=== PATIENT | male | born 1950 | race Caucasian/White ===

== ENCOUNTER 2021-05-29 02:16 | Day surgery (SDC) | payer OTHER, SELFPAY ==
[2021-05-17 14:58] VITALS: BMI 36.5
[2021-05-29 10:22] VITALS: BP 173/88; PULSE 91; RESP 18; TEMP 35.9; O2SAT 97; BMI 37.3
--- NOTE | 2021-05-29 10:31 | WPDANESEPPF ---
Anes - Initial Pre Proc Eval Procedure: Operation Date: 05/29/21 11:30 Proposed Procedures p Colonoscopy - Bayron Minaya MD Date/Time: 05/29/21 10:31 Surgeon: Bayron Minaya MD Pre Op Diagnosis: positive cologuard Patient Data Age: 70 Gender: M Height: 1.73 m Weight: 109 kg Allergies Allergy/AdvReac Type Severity Reaction Status Date / Time codeine Allergy Unknown Nausea/Vomi Verified 05/29/21 10:19 ting Home Medications Medication Instructions Recorded Confirmed Type aspirin 81 mg tablet,delayed 81 mg PO DAILY #30 tablet 09/26/19 05/29/21 Rx release meloxicam 15 mg tablet 15 mg PO DAILY #90 tablet 04/16/21 05/29/21 Rx allopurinol 100 mg PO DAILY 05/17/21 05/29/21 History lisinopril 40 mg PO DAILY 05/17/21 05/29/21 History vitamins A,C,V-havi-hmucwz 2 tablet PO BID 05/17/21 05/29/21 History [PreserVision AREDS] Patient hx anesthesia problems: none Family hx anesthesia problems: none PMFSH Past Medical History Medical History (Updated 05/29/21 @ 10:32 by Latrell West MD) Body mass index (bmi) 36.0-36.9, adult (07/05/19) BPH w/o urinary obs/LUTS Broken toe Chronic gout HTN (hypertension), benign Other hyperlipidemia Tobacco use Type 2 diabetes mellitus without complication, without long-term current use of insulin Surgical History Surgical History History of appendectomy History of hernia repair Family History Family History Father Family history of lung cancer Patient's father is Sibling Patient's brother is in good health Mother Family history of Alzheimer's disease Patient's mother is Social History Social History Smoking packs per day: 2 Smoking cigarettes per day: 40.0 Years smoked: 50 Smoking pack-years: 100.00 Smoking status: Current every day smoker Tobacco type: cigarettes Alcohol intake: current Living arrangements: with family Spiritual care concerns: No Anes - Eval Final PreProcedure Day of Procedure 05/29/21 10:31 Patient weight: obese Heart: regular rate and rhythm Lungs: clear to auscultation and normal air movement Airway: Mallampati scale class II Neurological: alert and oriented Last oral intake: >/= 8 hours ASA classification: III Emergent: no Anesthetic plan: proceed Anesthesia type and monitoring: general GIVS Informed Consent: The patient's anesthetic plan and its attendant risks and benefits were discussed with the patient/family/POA. Questions were solicited and answers provided to the satisfaction of the patient/family/POA.
[2021-05-29] MEDS: LACTATED RINGERS 1,000 ML 150 ML IV CONT (10:32)
--- NOTE | 2021-05-29 12:09 | PM.HPGS ---
History of Present Illness History of Present Illness Consent: Risks, benefits, and alternatives have been discussed and questions answered. Patient agrees to proceed with procedure. Chief complaint: positive cologuard Narrative: Ken Limon is a 70 year old male here for first colonoscopy, had positive cologuard Review of Systems Constitutional: Constitutional: Denies headache(s) and Denies weakness Eyes: Eyes: Denies blurry vision ENT: Reports Normal hearing present, Denies headache(s) and Denies neck pain Cardiovascular: Cardiovascular: Denies chest pain and Denies dyspnea Respiratory: Respiratory: Denies dyspnea Gastrointestinal: Gastrointestinal: Reports no additional gastrointestinal complaints Genitourinary: Genitourinary: Denies dysuria Musculoskeletal: Musculoskeletal: Denies neck pain Integumentary/Breasts: Skin/Breast: Denies dry skin Neurologic: Reports Normal hearing present, Denies headache(s) and Denies weakness Psychiatric: Psychiatric: Denies anxiety Endocrine: Endocrine: Denies change in body appearance Hematologic/Lymphatic: Hematologic/Lymphatic: Denies easy bleeding Allergic/Immunologic: Allergic/Immunologic: Denies urticaria PMFSH Past Medical History Medical History (Updated 05/29/21 @ 10:32 by Latrell West MD) Body mass index (bmi) 36.0-36.9, adult (07/05/19) BPH w/o urinary obs/LUTS Broken toe Chronic gout HTN (hypertension), benign Other hyperlipidemia Tobacco use Type 2 diabetes mellitus without complication, without long-term current use of insulin Surgical History Surgical History History of appendectomy History of hernia repair Family History Family History Father Family history of lung cancer Patient's father is Sibling Patient's brother is in good health Mother Family history of Alzheimer's disease Patient's mother is Social History Social History Smoking packs per day: 2 Smoking cigarettes per day: 40.0 Years smoked: 50 Smoking pack-years: 100.00 Smoking status: Current every day smoker Tobacco type: cigarettes Alcohol intake: current Living arrangements: with family Spiritual care concerns: No Meds Home Medications and Allergies Home Medications Medication Instructions Recorded Confirmed Type aspirin 81 mg tablet,delayed 81 mg PO DAILY #30 tablet 09/26/19 05/29/21 Rx release meloxicam 15 mg tablet 15 mg PO DAILY #90 tablet 04/16/21 05/29/21 Rx allopurinol 100 mg PO DAILY 05/17/21 05/29/21 History lisinopril 40 mg PO DAILY 05/17/21 05/29/21 History vitamins A,C,M-mqeh-jxsiyy 2 tablet PO BID 05/17/21 05/29/21 History [PreserVision AREDS] Allergies Allergy/AdvReac Type Severity Reaction Status Date / Time codeine Allergy Unknown Nausea/Vomi Verified 05/29/21 10:19 ting Vital Signs Vital Signs - 24 hr 05/29/21 10:22 Temperature 96.6 F L Pulse Rate 91 Respiratory Rate 18 Blood Pressure 173/88 H Pulse Oximetry 97 Exam Const: General: comfortable and no acute distress HENMT: General nose exam: Normal nares present Eyes: General: appearance normal, both eyes and all related structures Neck: Neck: no JVD Resp: Auscultation: clear to auscultation bilaterally Cardio: Rate: regular rate Rhythm: regular rhythm GI: Inspection: non-distended GI Palp: Yes Soft to palpation Skin: General skin exam: normal color Neuro: General: gait normal Speech: normal speech Extrem: General: normal to inspection Psych: Mental Status: mental status grossly normal Assessment and Plan Assessment and plan (1) Positive colorectal cancer screening using Cologuard test: Code(s): R19.5 - Other fecal abnormalities Status: Acute Assessment and Plan: colonoscopy
[2021-05-29 12:43] VITALS: BP 122/60; PULSE 65; RESP 15; O2SAT 91
[2021-05-29 12:53] VITALS: BP 106/64; PULSE 72; RESP 17; O2SAT 95
[2021-05-29 13:03] VITALS: BP 132/80; PULSE 78; RESP 19; O2SAT 96
== END 2021-05-29 13:29 | disposition home or self-care (01) ==
PROVIDERS: PCP Internal Medicine; Visit Provider Internal Medicine Gastroenterology
PROC: 0DJD8ZZ Inspection of Lower Intestinal Tract, Via Natural or Artificial Opening Endoscopic (ICD-10-PCS; CPT 45378; principal; 2021-05-29 11:30)
DX: R19.5 Other fecal abnormalities (principal); D12.2 Benign neoplasm of ascending colon; D12.5 Benign neoplasm of sigmoid colon; K63.5 Polyp of colon; K62.1 Rectal polyp; K64.8 Other hemorrhoids; I10 Essential (primary) hypertension; E78.5 Hyperlipidemia, unspecified; E11.9 Type 2 diabetes mellitus without complications; M1A.9XX0 Chronic gout, unspecified, without tophus (tophi); Z79.82 Long term (current) use of aspirin; F17.210 Nicotine dependence, cigarettes, uncomplicated; E66.9 Obesity, unspecified; Z68.37 Body mass index [BMI] 37.0-37.9, adult
CPT/HCPCS: 45385; 88305; J2704; J7120

== ENCOUNTER 2021-09-20 09:22 | Emergency (ER) | payer OTHER, SELFPAY ==
[2021-09-20 09:29] VITALS: BP 156/86; PULSE 80; RESP 14; TEMP 36.6; O2SAT 98
[2021-09-20 09:33] LABS: Glucose Point of Care 302 mg/dl (65-105)
[2021-09-20 09:43] LABS: Basophils Absolute Auto 0.1 K/mm3 (0.0-0.1); Basophils Percent Auto 0.8 % (0.2-1.2); Eosinophils Absolute Auto 0.2 K/mm3 (0-0.3); Eosinophils Percent Auto 1.9 % (0-4.4); Hematocrit 52.7 % (42.0-52.0); Hemoglobin 19.1 g/dL (14.0-18.0); Immature Granulocyte Absolute 0.04 K/mm3 (0.00-0.031); Immature Granulocyte Percent A 0.4 % (0-0.5); Lymphocytes Absolute Auto 3.36 K/mm3 (0.9-3.2); Lymphocytes Percent Auto 30.5 % (18.3-44.2); Mean Corpuscular HGB Conc 36.2 g/dl (32-36); Mean Corpuscular Volume 93.8 fl (80-100); Mean Platelet Volume 11.2 fl (7.4-10.4); Monocytes Absolute Auto 0.8 K/mm3 (0.1-0.6); Monocytes Percent Auto 7.3 % (2.6-8.5); Neutrophils Absolute Auto 6.5 K/mm3 (1.3-6.7); Neutrophils Percent Auto 59.1 % (45.5-73.1); Platelet Count Result 182 k/mm3 (150-375); Red Blood Count 5.62 M/mm3 (4.6-6.20); Red Cell Distribution Width 12.5 % (11.5-14.5)
[2021-09-20] MEDS: SODIUM CHLORIDE 0.9% IV 1,000 ML 999 ML IV CONT ×2 (10:00→10:01)
[2021-09-20 10:20] LABS: Add Urine Microscopic? YES; Appearance Urine Clear (Clear); Bilirubin Urine Negative (Negative); Blood Urine Negative (Negative); Color Urine Yellow (Yellow); Glucose Urine UA 3+ mg/dL (Negative); Ketones Urine 1+ mg/dL (Negative); Leukocyte Esterase Ur Negative LEU/UL (Negative); Mucus Urine Few /lpf; Nitrate Urine Negative (Negative); Protein Urine 1+ mg/dL (Negative); RBC Urine 0-2 /hpf (0-2); Specific Grav Ur 1.039 (1.001-1.035); Squamous Epithelial Cell Urine Rare /hpf (Few); Urobilinogen Urine Negative mg/dL (<2.0); WBC Urine 0-3 /hpf
[2021-09-20 10:28] LABS: Hemoglobin A1C 11.4 % (<5.7)
[2021-09-20 10:28] LABS: Alanine Aminotransferase 44 U/L (4-50); Albumin Level 4.5 g/dL (3.5-5.1); Alkaline Phosphatase 119 U/L (38-126); Anion Gap 8 mmol/L (8-16); Aspartate Amino Transferase 33 U/L (17-59); Bilirubin,Total 0.9 mg/dL (0.2-1.3); Blood Urea Nitrogen 19 mg/dL (9-20); Calcium 9.1 mg/dL (8.4-10.2); Carbon Dioxide 24 mmol/L (22-30); Chloride 102 mmol/L (98-107); Estimated CRCL calculation 116 ml/min; Estimated Glomerular Filt Rate > 60; Glucose 313 mg/dL (65-110); Magnesium 1.8 mg/dL (1.6-2.3); Phosphorus 2.6 mg/dL (2.5-4.5); Potassium 4.3 mmol/L (3.4-5.0); Sodium 134 mmol/L (137-145)
[2021-09-20 10:35] LABS: Beta-Hydroxybutyrate/Acetoacetate 0.45 mmol/L (0.02-0.27)
[2021-09-20 10:38] VITALS: BP 156/86; PULSE 97; RESP 14; O2SAT 97
--- NOTE | 2021-09-20 10:58 | ED.RECABL ---
HPI - Recheck/Abnormal Lab/Rx General Chief Complaint: Recheck/Abnormal Lab/Rx Stated Complaint: high blood sugar Time Seen by Provider: 09/20/21 09:48 Source: patient History of Present Illness HPI narrative: Patient presents for recheck of blood work. Patient reports he has been checking his blood sugar at home because he has had increased thirst and increased urination. Reports the highest it got was 400 today it was 300 symptoms high blood sugars have been persisted he came to the ER for evaluation. Reports otherwise he feels fine denies any abdominal pain, lightheadedness, dizziness. Denies any fevers, chills or cough congestion. Related Data Home Medications Medication Instructions Recorded Confirmed lisinopril 40 mg PO DAILY 05/17/21 05/29/21 vitamins A,C,A-scpg-njusry 2 tablet PO BID 05/17/21 05/29/21 [PreserVision AREDS] Allergies Allergy/AdvReac Type Severity Reaction Status Date / Time codeine Allergy Unknown Nausea/Vomi Verified 09/20/21 09:24 ting Review of Systems Review of Systems: CONSTITUTIONAL: Denies fever, chills, or sweats. EYES: Denies visual changes, redness, or discharge. ENT: Denies rhinorrhea, congestion, sore throat, or otalgia. CARDIOVASCULAR: Denies chest pain, palpitations, or edema. RESPIRATORY: Denies cough or dyspnea. GASTROINTESTINAL: Denies abdominal pain, nausea, vomiting, or diarrhea. GENITOURINARY: Denies dysuria or hematuria. SKIN: Denies rash or itching. MUSCULOSKELETAL: Denies back pain, joint pain, or myalgia. NEUROLOGIC: Denies headache, numbness, dizziness, or weakness. PSYCHIATRIC: Denies anxiety or depression. All systems reviewed & are unremarkable except as noted in HPI and below PMFSH Past Medical History Medical History Body mass index (bmi) 36.0-36.9, adult (07/05/19) BPH w/o urinary obs/LUTS Broken toe Chronic gout HTN (hypertension), benign Other hyperlipidemia Tobacco use Type 2 diabetes mellitus without complication, without long-term current use of insulin Surgical History Surgical History History of appendectomy History of hernia repair Family History Family History Father Family history of lung cancer Patient's father is Sibling Patient's brother is in good health Mother Family history of Alzheimer's disease Patient's mother is Social History Social History Smoking packs per day: 2 Smoking cigarettes per day: 40.0 Years smoked: 50 Smoking pack-years: 100.00 Smoking status: Current every day smoker Tobacco type: cigarettes Alcohol intake: current Spiritual care concerns: No Exam Narrative: GENERAL: Well-appearing, well-nourished, and in no acute distress. HEAD: Normocephalic, atraumatic. EYES: PERRLA and EOMI. ENT: Nares clear, no rhinorrhea or epistaxis. Mucous membranes moist. NECK: Supple. No masses. No JVD CHEST: Clear to auscultation. No respiratory distress. No wheezes rales or rhonchi HEART: Regular rate and rhythm. No murmur heard. Normal peripheral pulses. ABDOMEN: Soft, nontender, nondistended, normal active bowel sounds. EXTREMITIES: Normal range of motion. No edema. SKIN: Warm, dry, no rash. NEURO: No focal deficits. Alert and oriented x3. PSYCH: Normal mood and affect. Course Reevaluation(s) Reevaluation #1: Patient continues to feel well blood sugar is downtrending. With reassuring lab work-up is appropriate for patient valuation by his primary care. Date: 09/20/21 Time: 11:00 Vital Signs Vital signs: Vital Signs Temperature 36.6 C 09/20/21 09:29 Pulse Rate 80 09/20/21 09:29 Respiratory Rate 14 09/20/21 09:29 Blood Pressure 156/86 H 09/20/21 09:29 Pulse Oximetry 98 09/20/21 09:29 Temperature 36.6 C 09/20/21 09:29
[2021-09-20 11:00] LABS: Glucose Point of Care 235 mg/dl (65-105)
[2021-09-20 11:15] VITALS: BP 160/80; PULSE 88; RESP 19; O2SAT 97
== END 2021-09-20 11:15 | disposition home or self-care (01) ==
PROVIDERS: Emergency Provider Emergency Medicine; PCP Internal Medicine
DX: E11.65 Type 2 diabetes mellitus with hyperglycemia (principal); N40.0 Benign prostatic hyperplasia without lower urinary tract symptoms; M1A.9XX0 Chronic gout, unspecified, without tophus (tophi); I10 Essential (primary) hypertension; E78.5 Hyperlipidemia, unspecified; F17.210 Nicotine dependence, cigarettes, uncomplicated; Z79.01 Long term (current) use of anticoagulants; Z79.84 Long term (current) use of oral hypoglycemic drugs
CPT/HCPCS: 36415; 80053; 81001; 82010; 82948; 83036; 83735; 84100; 85025; 96360; 99283; J7030

== ENCOUNTER 2022-01-02 06:34 | Emergency (ER) | payer OTHER, SELFPAY ==
[2022-01-02] VITALS (8 sets, daily range): BP systolic 115–164; BP diastolic 74–92; PULSE 66–82; RESP 12–20; TEMP 36.4–36.5; O2SAT 93–98
--- NOTE | ~2022-01-02 | US_ITS ---
EXAMINATION: US right upper quadrant DATE: 01/02/2022 07:54 INDICATION: Right upper quadrant abdominal pain. Epigastric abdominal pain. TECHNIQUE: Multiple grayscale and Doppler ultrasound images of the abdomen were obtained. COMPARISON: CT abdomen and pelvis 06/27/2019 FINDINGS: The pancreas is not well visualized. There is diffuse hepatic steatosis. The gallbladder is normal in size. No gallstones or gallbladder wall thickening. There is comet tail artifact of the ga llbladder wall, consistent with adenomyomatosis. There was no sonographic Lewis sign. The common tea t is normal and measures 6 mm. IMPRESSION: 1. Diffuse hepatic steatosis. Reviewed, dictated and finalized at location A. [facility]
--- NOTE | 2022-01-02 06:43 | ECG_ITS ---
Measurements Intervals [place] Rate: 84 P: 18 MN: 144 QRS: -15 QRSD: 102 T: 40 QT: 359 QTc: 425 Interpretive Statements SINUS RHYTHM NORMAL ECG NO PREVIOUS ECG AVAILABLE FOR COMPARISON Electronically Signed On 01-02-2022 14:07:29 [employer] by Yung Sow M.D.
[2022-01-02 06:58] LABS: Basophils Absolute Auto 0.1 K/mm3 (0.0-0.1); Eosinophils Absolute Auto 0.2 K/mm3 (0-0.3); Eosinophils Percent Auto 3.1 % (0-4.4); Hematocrit 59.2 % (42.0-52.0); Hemoglobin 19.7 g/dL (14.0-18.0); Immature Granulocyte Absolute 0.02 K/mm3 (0.00-0.031); Immature Granulocyte Percent A 0.3 % (0-0.5); Immature Platelet Fraction Pct 6.5 % (0.9-11.2); Lymphocytes Absolute Auto 3.26 K/mm3 (0.9-3.2); Lymphocytes Percent Auto 42.4 % (18.3-44.2); Mean Corpuscular HGB Conc 33.3 g/dl (32-36); Mean Corpuscular Hemoglobin 32.3 pg (26-34); Monocytes Absolute Auto 0.9 K/mm3 (0.1-0.6); Monocytes Percent Auto 11.7 % (2.6-8.5); Neutrophils Absolute Auto 3.2 K/mm3 (1.3-6.7); Neutrophils Percent Auto 41.5 % (45.5-73.1); Platelet Count Result 132 k/mm3 (150-375); Red Cell Distribution Width 14.1 % (11.5-14.5); White Blood Count 7.7 K/mm3 (4.5-10.0)
[2022-01-02 07:03] LABS: Alanine Aminotransferase 36 U/L (4-50); Albumin Level 4.3 g/dL (3.5-5.1); Alkaline Phosphatase 89 U/L (38-126); Anion Gap 7 mmol/L (8-16); Aspartate Amino Transferase 36 U/L (17-59); Bilirubin,Total 0.5 mg/dL (0.2-1.3); Blood Urea Nitrogen 19 mg/dL (9-20); Calcium 8.8 mg/dL (8.4-10.2); Carbon Dioxide 30 mmol/L (22-30); Chloride 104 mmol/L (98-107); Estimated CRCL calculation 88 ml/min; Estimated Glomerular Filt Rate > 60; Glucose 137 mg/dL (65-110); Lipase 138 U/L (23-300); Potassium 4.4 mmol/L (3.4-5.0); Sodium 141 mmol/L (137-145)
[2022-01-02 07:16] LABS: Atypical Lymphocytes Present; Platelet Estimate Decreased (Adequate)
--- NOTE | 2022-01-02 07:18 | ED.ABDPAIN ---
HPI - Abdominal Pain General Chief Complaint: Abdominal Pain Stated Complaint: stomach's on fire Time Seen by Provider: 01/02/22 07:02 History of Present Illness HPI narrative: Patient is a 71-year-old male who presents ER with burning epigastric pain. Ongoing over the last 3 days. This occurred just after he had some body aches with a fever of 101.0 ?F. No longer febrile. Denies runny nose or sore throat or productive cough. No urinary frequency urgency or dysuria. Had similar pain years ago was told it was related to an infection of his stomach. Patient has tried no medication to help with his discomfort. It is worsened by eating. No radiation to his back or shoulder. Denies chest pain/pressure. Related Data Home Medications Medication Instructions Recorded Confirmed vitamins A,C,H-oluo-ifdiwr 2 tablet PO BID 05/17/21 09/26/21 [PreserVision AREDS] Allergies Allergy/AdvReac Type Severity Reaction Status Date / Time codeine Allergy Unknown Nausea/Vomi Verified 09/26/21 09:35 ting Review of Systems Review of Systems: All systems reviewed & are unremarkable except as noted in HPI and below Constitutional: Constitutional: Denies chills, Reports fever(s) and Denies weakness ENT: Denies nasal congestion and Denies sore throat Cardiovascular: Cardiovascular: Denies chest pain, Denies rapid heart rate and Denies radiating jaw, neck or arm pain Respiratory: Respiratory: Denies cough and Denies dyspnea Gastrointestinal: Gastrointestinal: Reports abdominal pain, Denies constipation, Denies diarrhea, Denies nausea and Denies vomiting Genitourinary: Genitourinary: Denies dysuria and Denies urinary frequency [facility] Past Medical History Medical History Body mass index (bmi) 36.0-36.9, adult (07/05/19) BPH w/o urinary obs/LUTS Broken toe Chronic gout HTN (hypertension), benign Other hyperlipidemia Tobacco use Type 2 diabetes mellitus without complication, without long-term current use of insulin Surgical History Surgical History History of appendectomy History of hernia repair Family History Family History Father Family history of lung cancer Patient's father is Sibling Patient's brother is in good health Mother Family history of Alzheimer's disease Patient's mother is Social History Social History (Updated 09/26/21 @ 09:36 by Johnna Polo) Smoking packs per day: 2 Smoking cigarettes per day: 40.0 Years smoked: 50 Smoking pack-years: 100.00 Smoking status: Current every day smoker Tobacco type: cigarettes Alcohol intake: current Alcohol use details: social Substance use: never Substance use type: does not use Spiritual care concerns: No Exam Narrative: GENERAL: Well-appearing, well-nourished, and in no acute distress. HEAD: Normocephalic, atraumatic. EYES: PERRL and EOMI. CHEST: Clear to auscultation. No respiratory distress. HEART: Regular rate and rhythm. Normal peripheral pulses. ABDOMEN: Soft, mild tenderness epigastrium right upper quadrant without guarding, nondistended. EXTREMITIES: Normal range of motion. No edema. SKIN: Warm, dry, no rash. NEURO: Alert and oriented x3. PSYCH: Normal mood and affect. Course Course Emergency Course: Only mild improvement with morphine and resolution of discomfort with GI cocktail. Informed results. Discussed treatment plan. Discharge home. Vital Signs Vital signs: Vital Signs Temperature 97.7 F 01/02/22 06:39 Pulse Rate 82 01/02/22 06:39 Respiratory Rate 20 01/02/22 06:39 Blood Pressure 164/92 H 01/02/22 06:39 Pulse Oximetry 98 01/02/22 06:39 Temperature 97.7 F 01/02/22 06:39 Pulse Rate 70 01/02/22 09:14 Respiratory Rate 12 01/02/22 09:14 Blood Pressure 122/78 01/02/22 09:14
[2022-01-02] MEDS: MORPHINE SULFATE (*CRX) 4 MG/ML INJ IV PUSH (07:31)
[2022-01-02] MEDS: BELLADONNA ALK/PHENOB ELIX 10 ML, MAG HYDROX/ALUMINUM HYD/SIMETH 30 ML, LIDOCAINE HCL 2... PO (08:16)
== END 2022-01-02 09:46 | disposition home or self-care (01) ==
PROVIDERS: General Practice; Emergency Provider Emergency Medicine; PCP Internal Medicine
DX: K21.9 Gastro-esophageal reflux disease without esophagitis (principal); N40.0 Benign prostatic hyperplasia without lower urinary tract symptoms; I10 Essential (primary) hypertension; E11.9 Type 2 diabetes mellitus without complications; E78.49 Other hyperlipidemia; M10.9 Gout, unspecified; F17.210 Nicotine dependence, cigarettes, uncomplicated; K76.0 Fatty (change of) liver, not elsewhere classified
CPT/HCPCS: 36415; 76705; 80053; 83690; 85025; 85055; 93005; 96374; 99284; A9270; J2270

== ENCOUNTER 2024-05-04 07:41 | Day surgery (SDC) | payer OTHER, SELFPAY ==
[2024-04-11 12:26] VITALS: BMI 36.6
--- NOTE | 2024-05-03 13:48 | WPDANESEPPF ---
Anes - Initial Pre Proc Eval Procedure: Operation Date: 05/04/24 10:00 Proposed Procedures p Diagnostic Colonoscopy - Gian Bower MD Date/Time: 05/03/24 13:48 Surgeon: Gian Bower MD Pre Op Diagnosis: Personal HX of colon polyps Patient Data Age: 73 Gender: M Height: 1.75 m Weight: 112.945 kg Allergies Allergy/AdvReac Type Severity Reaction Status Date / Time codeine Allergy Unknown Nausea/Vomi Verified 05/04/24 08:43 ting Home Medications Medication Instructions Recorded Confirmed Type aspirin 81 mg tablet,delayed 81 mg PO DAILY #30 tabs 09/26/19 05/04/24 Rx release (Adult Low Dose Aspirin) vitamins A,C,V-wdws-duxapk 2,148 2 tablet PO BID 05/17/21 05/04/24 History mcg-113 mg-45 mg-17.4 mg tablet (PreserVision AREDS) allopurinol 100 mg tablet See Rx Instructions .Route 11/09/23 05/04/24 Rx .COMPLEX #90 tabs metformin 500 mg tablet See Rx Instructions .Route 02/03/24 05/04/24 Rx .COMPLEX #180 tabs meloxicam 15 mg tablet See Rx Instructions .Route 03/25/24 05/04/24 Rx .COMPLEX #90 tabs atorvastatin 10 mg tablet (Lipitor) 10 mg PO DAILY #90 tabs 04/05/24 05/04/24 Rx lisinopril 40 mg tablet See Rx Instructions .Route 04/06/24 05/04/24 Rx .COMPLEX #90 tabs Patient hx anesthesia problems: none Family hx anesthesia problems: none Results Review: All pre-operative results and documents have been reviewed as part of the pre-operative evaluation. [facility] Past Medical History Medical History (Updated 09/29/23 @ 09:55 by Jovon Kwok APRN) Body mass index (bmi) 36.0-36.9, adult (07/05/19) BPH w/o urinary obs/LUTS Broken toe Chronic gout HTN (hypertension), benign Legally blind Macular degeneration Other hyperlipidemia Tobacco use Type 2 diabetes mellitus without complication, without long-term current use of insulin Surgical History Surgical History History of appendectomy History of hernia repair Family History Family History (Reviewed 09/29/23 @ 09:15 by Cassandra Ashraf [facility]) Father Family history of lung cancer Patient's father is Sibling Patient's brother is in good health Mother Family history of Alzheimer's disease Patient's mother is Social History Social History (Reviewed 09/29/23 @ 09:15 by Cassandra Ashraf [facility]) Smoking packs per day: 2 Smoking cigarettes per day: 40.0 Years smoked: 50 Smoking pack-years: 100.00 Smoking status: Current every day smoker Tobacco type: cigarettes Second hand tobacco smoke exposure: Yes Alcohol intake: current Alcohol use details: social Substance use: never Substance use type: does not use Lack of Transportation: No Lack of Food: Never True Current Housing: I Have Housing Concerned About Future Housing: No Difficulty Paying Gas/Electric Bills: No Difficulty Paying for Meds: No Currently Unemployed: No Education: High School Diploma/GED Difficulty w/ Childcare or Family Care: No Living arrangements: with family Spiritual care concerns: No Anes - Eval Final PreProcedure Day of Procedure 05/03/24 13:48 Patient weight: obese Heart: regular rate and rhythm Lungs: clear to auscultation Airway: Mallampati scale class II Neurological: alert and oriented Last oral intake: >/= 8 hours ASA classification: III Emergent: no Anesthetic plan: proceed Anesthesia type and monitoring: general GIVS and standard monitoring Results Review: All pre-operative results and documents have been reviewed as part of the pre-operative evaluation. Informed Consent: The patient's anesthetic plan and its attendant risks and benefits were discussed with the patient/family/POA. Questions were solicited and answers provided to the satisfaction of the patient/family/POA.
[2024-05-04 08:48] VITALS: BP 171/92; PULSE 83; RESP 20; TEMP 36.2; O2SAT 95; BMI 35.8
[2024-05-04] MEDS: LACTATED RINGERS 1,000 ML 150 ML IV CONT (09:04)
[2024-05-04 09:10] LABS: Glucose Point of Care 156 mg/dl (65-105)
--- NOTE | 2024-05-04 09:10 | PM.HPGS ---
History of Present Illness History of Present Illness Consent: Risks, benefits, and alternatives have been discussed and questions answered. Patient agrees to proceed with procedure. Chief complaint: Personal HX of colon polyps Narrative: Ken Limon is a 73 year old male presents for screening colonoscopy. Patient's current weight appetite and bowel movements are normal. Patient denies abdominal pain. He does have a prior history of colon polyps in 2020. Tubular adenomatous polyps will removed at that time. Patient presents today for follow-up colonoscopy. Review of Systems Review of Systems: All systems reviewed & are unremarkable except as noted in HPI and below PMFSH Past Medical History Medical History (Updated 09/29/23 @ 09:55 by Jovon Kwok, REY) Body mass index (bmi) 36.0-36.9, adult (07/05/19) BPH w/o urinary obs/LUTS Broken toe Chronic gout HTN (hypertension), benign Legally blind Macular degeneration Other hyperlipidemia Tobacco use Type 2 diabetes mellitus without complication, without long-term current use of insulin Surgical History Surgical History History of appendectomy History of hernia repair Family History Family History Father Family history of lung cancer Patient's father is Sibling Patient's brother is in good health Mother Family history of Alzheimer's disease Patient's mother is Social History Social History Smoking packs per day: 2 Smoking cigarettes per day: 40.0 Years smoked: 50 Smoking pack-years: 100.00 Smoking status: Current every day smoker Tobacco type: cigarettes Second hand tobacco smoke exposure: Yes Alcohol intake: current Alcohol use details: social Substance use: never Substance use type: does not use Lack of Transportation: No Lack of Food: Never True Current Housing: I Have Housing Concerned About Future Housing: No Difficulty Paying Gas/Electric Bills: No Difficulty Paying for Meds: No Currently Unemployed: No Education: High School Diploma/GED Difficulty w/ Childcare or Family Care: No Living arrangements: with family Spiritual care concerns: No Meds Home Medications and Allergies Home Medications Medication Instructions Recorded Confirmed Type aspirin 81 mg tablet,delayed 81 mg PO DAILY #30 tabs 09/26/19 05/04/24 Rx release (Adult Low Dose Aspirin) vitamins A,C,Q-vmzg-zslamo 2,148 2 tablet PO BID 05/17/21 05/04/24 History mcg-113 mg-45 mg-17.4 mg tablet (PreserVision AREDS) allopurinol 100 mg tablet See Rx Instructions .Route 11/09/23 05/04/24 Rx .COMPLEX #90 tabs metformin 500 mg tablet See Rx Instructions .Route 02/03/24 05/04/24 Rx .COMPLEX #180 tabs meloxicam 15 mg tablet See Rx Instructions .Route 03/25/24 05/04/24 Rx .COMPLEX #90 tabs atorvastatin 10 mg tablet (Lipitor) 10 mg PO DAILY #90 tabs 04/05/24 05/04/24 Rx lisinopril 40 mg tablet See Rx Instructions .Route 04/06/24 05/04/24 Rx .COMPLEX #90 tabs Allergies Allergy/AdvReac Type Severity Reaction Status Date / Time codeine Allergy Unknown Nausea/Vomi Verified 05/04/24 08:43 ting Vital Signs Vital Signs - 24 hr 05/04/24 08:48 Temperature 97.1 F L Pulse Rate 83 Respiratory Rate 20 Blood Pressure 171/92 H Pulse Oximetry 95 Oxygen Delivery Room Air Exam Narrative: Physical exam reveals patient to be alert. vital signs stable. HEENT exam is unremarkable. Is anicteric. Lungs are clear to auscultation and to percussion. Heart is without murmur or extra sounds. Abdomen bowel sounds are present soft nontender with no organomegaly. Digital external rectal exam is normal. Assessment and Plan Assessment and plan (1) History of colon polyps: Code(s): Z86.010 - Pers
[2024-05-04 10:13] VITALS: BP 133/65; PULSE 70; RESP 18; O2SAT 90
[2024-05-04 10:23] VITALS: BP 134/72; PULSE 70; RESP 18; O2SAT 95
[2024-05-04 10:33] VITALS: BP 139/79; PULSE 66; RESP 18; O2SAT 94
--- NOTE | 2024-05-04 15:05 | WPDANESPN ---
Anes - Prog Note Post-Op Date/Time: 05/04/24 15:05 Cardiovascular status: normal Respiratory status: normal Airway patency: baseline Mental status: baseline Post-Op hydration status: normal Vital Signs: Last Vital Signs Temp 36.2 C L 05/04/24 08:48 Pulse 66 05/04/24 10:33 Resp 18 05/04/24 10:33 BP 139/79 05/04/24 10:33 Pulse Ox 94 05/04/24 10:33 O2 Del Method Room Air 05/04/24 10:33 Pain Score (VAS): 0 I/O: Intake & Output 05/03/24 05/04/24 05/04/24 23:59 07:59 15:59 Intake Total 850 Balance 850 05/04/24 09:03 POC Capillary Glucose 156 H Post-procedural complaints: none Patient Feedback: Patient satisfied with anesthetic care. Other Findings: Patient vital signs back to baseline. Patient denies nausea and vomiting. Patient's pain under control. Patient OK for discharge.
== END 2024-05-04 10:44 | disposition home or self-care (01) ==
PROVIDERS: PCP Family Medicine; Visit Provider Internal Medicine Gastroenterology
PROC: 0DJD8ZZ Inspection of Lower Intestinal Tract, Via Natural or Artificial Opening Endoscopic (ICD-10-PCS; CPT 45378; principal; 2024-05-04 10:00)
DX: Z86.010 Personal history of colon polyps (principal); D12.6 Benign neoplasm of colon, unspecified; K64.8 Other hemorrhoids
CPT/HCPCS: 45385

== ENCOUNTER 2024-05-04 08:05 | Outpatient (NON) | payer OTHER, SELFPAY | END 2024-05-04 08:06 | disposition home or self-care (01) | LOC: ANHLAB 05-05 08:07 | PROVIDERS: PCP Family Medicine; Visit Provider Internal Medicine Gastroenterology | DX: Z12.11 Encounter for screening for malignant neoplasm of colon (principal); D12.5 Benign neoplasm of sigmoid colon; K63.5 Polyp of colon | CPT/HCPCS: 88305 ==

== ENCOUNTER 2025-07-06 13:59 | Outpatient (CLI) | payer OTHER, SELFPAY ==
--- NOTE | ~2025-07-06 | US_ITS ---
Ultrasound LULÚ INDICATION: I 73.9-peripheral vascular disease COMPARISON: None TECHNIQUE: ABIs, ankle Dopplers FINDINGS: Right LULÚ 0.75, left LULÚ 0.77 Right TBI 0.41, left TBI 0.77 Ankle Dopplers monophasic IMPRESSION: 1. Bilateral lower extremities with moderate arterial insufficiency at rest. 2. Right LULÚ 0.75, left LULÚ 0.77. Reviewed, dictated and finalized at location R.
--- NOTE | ~2025-07-06 | XR_ITS ---
EXAMINATION: XR hip BI wo pelvis, 07/06/2025 14:15 CDT HISTORY: M25.551 - Pain in right hip COMPARISON: No comparisons available. Findings: No acute fracture or malalignment. Moderate degenerative changes Soft tissues unremarkable. Impression: No acute fracture or malalignment. Reviewed, dictated and finalized at location A. Impression: No acute fracture or malalignment.
--- OUTSIDE RECORDS SUMMARY | 2025-07-06 15:47 | XMS_ITS | Clinical Summary ---
Author Organization [address] Address [address] [place] [address] MICAH Mcguire [id number] Care Team Providers Care [facility]rub Planter Name Role Phone Fly Mendoza MD Primary Care Provider [phone] Fly Mendoza MD Unavailable [phone] Allergies Active Allergy Reactions Criticality Noted Date Comments Codeine Stomach upset Low 02/11/2024 Medications allopurinoL (ZYLOPRIM) 100 mg tablet 02/03/2024 Active atorvastatin (LIPITOR) 10 mg tablet Take 1 tablet (10 mg total) by mouth daily 01/05/2024 Active lisinopriL (PRINIVIL,ZESTRI L) 40 mg tablet Take 1 tablet (40 mg total) by mouth daily 12/23/2023 Active metFORMIN (GLUCOPHAGE) 500 mg tablet 02/03/2024 Active meloxicam (MOBIC) 15 mg tablet Take 1 tablet (15 mg total) by mouth 12/23/2023 Active vitamins A,C,T-pzor-ltvgq r (OCUVITE) 2,148 mcg-113 mg-45 mg-17.4mg tablet 1 tablet 2 (two) times a day Active aspirin 81 mg enteric coated tablet Take 1 tablet (81 mg total) by mouth daily Active Active Problems Problem Noted Date Diagnosed Date 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 He has advanced dry AMD with geographic atrophy, we discussed new complement inhibitors and their risks and benefits, considering the severity of his dry macular degeneration I doubt this would be of significant benefit. We discussed continuing AREDS and smoking cessation. Agree the next step is to follow up with low vision close to home and can continue to follow up with local eye care specialists (Dr. Camacho). Surgical History Surgery Date Site/Laterality Comments CATARACT EXTRACTION Bilateral APPENDECTOMY HERNIA MESH REMOVAL Family History Medical History Relation Name Comments Lung cancer Father Breast cancer Mother Relation Name Status Comments Father Mother Social History Tobacco Use Types Packs/Day Years Used Date Smoking Tobacco: Every Day Cigarettes 0.1 50 Tobacco Cessation:Ready to Q uit: Not Asked; Counseling Given: Not Answered Personal Safety Answer Date Recorded Getting School Help Needed Not on file 01/11 Sex and Gender Information Value Date Recorded Sex Assigned at Not on file Legal Sex Male 12:36 PM CDT Gender Identity Not on file Sexual Orientation Not on file Obstetrics History Plan of Treatment Health Maintenance Due Date Last Done Comments Colon Cancer Screening-Colonoscopy 1950 Depression Screening 1950 Fall Risk Assessment 1950 Hepatitis C Screening 1950 DTaP/Tdap/Td Vaccine (1 - Tdap) 1960 Hepatitis B Screening 1967 Abdominal Aortic Aneurysm (A AA) Screen 2014 Well Visit 65+ 2014 Covid-19 Vaccine (2024-2 6 season) 2025 08/10/2023, 07/22/2022, 02/03/2022, Additional history exists Influenza Vaccine (#1) 2025 08/10/2023, 2021 Pneumococcal vaccine 65+ Completed 03/18/2022 Zoster Vaccine Completed 05/20/2022, 03/18/2022 Insurance [employer] PPO Care Teams Sh[employer]ter Relationship Specialty Start Date End Date Fly Mendoza MD PCP - General Family Practice 01/12/24 Fly Mendoza MD [facility] 01/12/24
== END 2025-07-06 14:00 | disposition home or self-care (01) ==
PROVIDERS: PCP Nurse Practitioner; Visit Provider Nurse Practitioner
DX: I73.9 Peripheral vascular disease, unspecified (principal); M79.671 Pain in right foot; M79.672 Pain in left foot; M25.551 Pain in right hip; M25.552 Pain in left hip
CPT/HCPCS: 73521; 93922